=== PATIENT | female | born 2000 | race Caucasian/White ===

== ENCOUNTER 2021-04-13 23:22 | Emergency (ER) | payer BC ==
[~2021-04-13] VITALS: Ht 165.1 cm; Wt 89.1 kg
[2021-04-13 23:27] VITALS: Ht 165.1 cm; Wt 89.1 kg
[2021-04-13] MEDS ORDERED: BUPROPION HCL200 M1 PO (23:29)
[2021-04-14 00:31] LABS: BASOPHILS 0.5 % (0-2); HEMATOCRIT 39.3 % (36.0-48.0); HEMOGLOBIN 12.8 g/dL (12-16); LYMPHOCYTES 13.1 % (15-50); MCHC 32.5 g/dL (31.0-37.0); MCV 86.2 fL (80.0-100.0); MEAN PLATELET VOLUME 9.8 fL (7.4-10.4); MONOCYTES 5.2 % (2-11); NEUTROPHILS 80.2 % (40-80); PLATELET COUNT 241 10x3/uL (130-400); RBC 4.57 10x6/uL (4.00-5.40); RDW 14.4 % (11.5-14.5); WBC 19.4 10x3/uL (4.8-10.8)
[2021-04-14 00:35] LABS: CALC OSMOLALITY 281 mosm/kg (275-300); CALCIUM 8.9 mg/dL (8.5-10.1); CHLORIDE - SERUM 106 mmol/L (98-107); CREATININE - SERUM 0.7 mg/dL (0.6-1.3); GLUCOSE 92 mg/dL (74-106); POTASSIUM - SERUM 3.7 mmol/L (3.5-5.1); SODIUM 142 mmol/L (136-145); UREA NITROGEN 10 mg/dL (7-18); eGFR NON AFRICAN AMERICAN > 90 mL/min (90-120)
[2021-04-14 00:36] LABS: BILIRUBIN NEGATIVE (NEGATIVE); KETONE NEGATIVE mg/dL (< 1+); NITRITE NEGATIVE (NEGATIVE); UROBILINOGEN NORMAL mg/dL (< 2)
[2021-04-14 00:48] LABS: BACTERIA MODERATE HPF (<MOD)
[2021-04-14 00:49] LABS: HCG URINE NEGATIVE (NEGATIVE)
[2021-04-14 00:53] LABS: ALBUMIN 3.7 g/dL (3.4-5.0); ALKALINE PHOSPHATASE 67 U/L (30-120); ALT (SGPT) 20 U/L (10-68); BILIRUBIN - TOTAL 0.33 mg/dL (0.2-1.3); LIPASE 51 U/L (73-393); PROTEIN - SERUM 6.9 g/dL (6.4-8.2)
[2021-04-14] MEDS ORDERED: MACROBID100 MG PO (02:29)
[2021-04-14 03:13] VITALS: BP 136/74
== END 2021-04-14 03:14 | disposition home or self-care (01) ==
LOC: D.ER 23:22
PROVIDERS: Family Medicine
DX: N39.0 Urinary tract infection, site not specified (principal); R10.31 Right lower quadrant pain; R10.32 Left lower quadrant pain